=== PATIENT | female | born 1955 | race Caucasian/White ===

== ENCOUNTER → 2017-06-14 | Outpatient (CLI) | payer OTHER ==
--- NOTE | 2017-06-14 16:39 | RAD ---
DATE: June 14, 2017 EXAM: DIGITAL SCREEN BILAT W/CAD HISTORY: Screening study. COMPARISON: None. Baseline study. This study was interpreted with the benefit of Computerized Aided Detection (CAD). FINDINGS: The breast parenchyma is heterogeneously dense. There are no dominant suspicious masses, suspicious microcalcifications or evidence of architectural distortion. IMPRESSION: No mammographic indicators for malignancy. BI-RADS CATEGORY: 1 NEGATIVE RECOMMENDED FOLLOW-UP: 12M 12 MONTH FOLLOW-UP PQRS compliance statement: Patient information was entered into a reminder system with a target due date June 15, 2018 for the next mammogram. Mammography is a sensitive method for finding small breast cancers, but it does not detect them all and is not a substitute for careful clinical examination. A negative mammogram does not negate a clinically suspicious finding and should not result in delay in biopsying a clinically suspicious abnormality. "Our facility is accredited by the [employer] Mammography Program." The patient's breast density may affect the ability of mammography to detect breast cancer. There are 4 categories of breast density, A, B, C and D. Breast density A means that most of the breast tissue is replaced with adipose tissue and therefore is not dense. Breast density B means that the breast tissue is mildly dense and scattered. Breast density C means that the breast tissue is heterogeneously dense. Breast density D means that the breast tissue is very dense. Breast densities especially C and D may decrease the sensitivity of mammography to detect breast cancer. Therefore, the patient may benefit from 3-D breast mammography (3D breast tomography) as a part of their screening mammogram. Insurance may or may not pay for this additional imaging. The patient's breast density based on today's mammogram is category C.
== END | disposition home or self-care (01) ==
LOC: MAMMO 14:44 → EDSTATUS 15:00
PROVIDERS: ATTEND Nurse Practitioner
DX: Z12.31 Encounter for screening mammogram for malignant neoplasm of breast (principal)
CPT/HCPCS: G0202; 77067

== ENCOUNTER → 2020-12-22 | Outpatient (CLI) | payer MEDICARE ==
[~2020-12-22] MED LIST: IOHEXOL 240 MG/ML 50ML VIAL. ONE; IOHEXOL 240 MG/ML 50ML VIAL. PO ONE; IOHEXOL 300 MG/ML 75 ML VIAL. IV ONE
--- NOTE | 2020-12-22 15:42 | RAD ---
EXAM: Abdomen and pelvis CT with intravenous contrast. HISTORY: Ventral hernia. TECHNIQUE: Computed tomographic images of the abdomen and pelvis were obtained following the administ ration of intravenous contrast. Multiplanar reformatting was performed. *One or more of the following individualized dose reduction techniques were utilized for this examina tion: 1. Automated exposure control. 2. Adjustment of the mA and/or kV according to patient size. 3. Use of iterative reconstruction technique. COMPARISON: None. FINDINGS: Evaluation of the lower thorax demonstrates linear right lower lobe atelectasis or scarring . The superimposed on bilateral posterior dependent and basilar atelectasis. The heart is normal in s ize. There is a 7 mm hypodense lesion within the posterior right hepatic lobe, too small to character ize. There is slight fatty infiltration of the liver along the falciform ligament. The gallbladder, p ancreas, spleen and adrenal glands are unremarkable. The stomach is unremarkable. There is a 5 mm hypodense lesion within the upper pole of the left kidney, the attenuation which favo rs a cyst. There is mild left hydronephrosis. No obstructing lesion is seen. The bladder is unremarka ble. The pancreas is not seen. There is moderate stool throughout the colon. The uterus and adnexal region s are unremarkable. The aorta is normal in caliber. There is no lymphadenopathy. There is a tiny fat- containing right inguinal hernia. There is degenerative change involving the spine, primarily at L4-L 5. IMPRESSION: 1. No acute abdominal or pelvic finding. 2. Moderate colonic stool. Correlate for constipation. 3. Small suspected left renal cyst. Follow-up is not routinely performed for simple cysts. 4. 7 mm hypodense lesion within the liver, too small to characterize. In the absence of known maligna ncy, this is likely a cyst or hemangioma. 5. Tiny fat-containing right inguinal hernia. Electronically signed by: Latia Birmingham MD (12/22/2020 3:39 PM) [id number]
== END ==
LOC: CT 13:44
PROVIDERS: ATTEND Family Medicine
DX: K40.90 Unilateral inguinal hernia, without obstruction or gangrene, not specified as recurrent (principal); N28.1 Cyst of kidney, acquired
CPT/HCPCS: 74177; Q9966; Q9967

== ENCOUNTER → 2021-05-02 | Outpatient (CLI) | payer MEDICARE ==
--- NOTE | 2021-05-02 14:31 | RAD ---
INDICATION: Screening for osteopenia/osteoporosis. Postmenopausal evaluation. COMPARISON: None. TECHNIQUE: Bone densitometry was performed through the lumbar spine and proximal femur. IMPRESSION: Lumbar Spine: BMD: 0.8 T-Score: -3.1 Range: Osteoporotic Proximal Femur: BMD: 0.57 T-Score: -3.1 Range: Osteoporotic World Health Organization Criteria for Bone Density: T-Score: > -1.0: Normal Range < -1.0 to -2.5: Osteopenic Range < -2.5: Osteoporotic Range Electronically signed by: Yasmani Macdonald MD (05/02/2021 2:29 PM) [id number]
== END ==
LOC: DXRAD 12:56
PROVIDERS: ATTEND Family Medicine
DX: M81.0 Age-related osteoporosis without current pathological fracture (principal)
CPT/HCPCS: 77080